=== PATIENT | female | born 1980 | race American Indian/Alaskan Native ===

== ENCOUNTER 2017-06-11 20:40 | Observation (INO) | payer BC, OTHER ==
[2017-06-11] MEDS ORDERED: methylPREDNISolone Sodium Succinate 125 MG/2 ML SDV IM ONE (20:44)
[2017-06-11] MEDS ORDERED: Albuterol/Ipratropium 3.0-0.5 MG/3 ML Neb Soln NEB ONE ×2 (20:44→21:35)
--- NOTE | 2017-06-11 20:45 | EDM.PDOC ---
ED HPI GENERAL MEDICAL PROBLEM - General Chief Complaint: Respiratory Problem Stated Complaint: SHORTNESS OF BREATH Time Seen by Provider: 06/11/17 20:41 Source of Information: Reports: Patient History Limitations: Reports: No Limitations - History of Present Illness INITIAL COMMENTS - FREE TEXT/NARRATIVE: HISTORY AND PHYSICAL: History of present illness: Patient is a 36-year-old female who presents to the emergency room with complaints of chest pain and shortness of breath. She states she started having the symptoms earlier this morning and have progressively gotten worse since about 3 PM this afternoon. Patient has a reported history of allergies and has duo nebs available to her at home. Did two treatments [employer] without relief of her SOB. She describes her chest pain as a tightness, generalized across her chest. Worse with deep breathes and coughing. She denies any fever, chills, abdominal pain, nausea, vomiting or diarrhea/ constipation. Denies any diaphoresis or radiating pain (no neck, jaw or back pain). Denies any history of lung disease such as asthma or COPD. No history of heart disease. No smoking history. Review of systems: As per history of present illness and below otherwise all systems reviewed and negative. Past medical history: As per history of present illness and as reviewed below otherwise noncontributory. Surgical history: As per history of present illness and as reviewed below otherwise noncontributory. Social history: No reported history of drug or alcohol abuse. Family history: As per history of present illness and as reviewed below otherwise noncontributory. Physical exam: General: Well-developed and well-nourished 36-year-old female. Alert and oriented. Nontoxic appearing and in no acute distress. HEENT: Atraumatic, normocephalic, pupils equal and reactive bilaterally, negative for conjunctival pallor or scleral icterus, mucous membranes moist, throat clear, neck supple, nontender, trachea midline. No drooling or trismus noted. No meningeal signs Lungs: Inspiratory and expiratory wheezing bilaterally, chest nontender. Heart: S1S2, regular rate and rhythm without overt murmur. Tachycardia with HR 120-110's Abdomen: Soft, nondistended, nontender. Negative for masses or hepatosplenomegaly. Negative for costovertebral tenderness. Pelvis: Stable nontender. Genitourinary: Deferred. Rectal: Deferred. Skin: Intact, warm, dry. No lesions or rashes noted. Extremities: Atraumatic, negative for cords or calf pain. Neurovascular unremarkable. Neuro: Awake, alert, oriented. Cranial nerves II through XII unremarkable. Cerebellum unremarkable. Motor and sensory unremarkable throughout. Exam nonfocal. Notes: Patient had to do an nebs prior to arrival. She did have inspiratory and expiratory wheezing with poor air exchange. After the first DuoNeb she did have better air exchange but still had the inspiratory and expiratory wheezing. EKG shows sinus Tachycardia, HR 117. WBC is 21.8. Chest x-ray shows a bilateral lower lobe pneumonia. Blood cultures obtained; second duo neb ordered. Dr. Mcelroy was consulted on this case. He would like IV Levaquin started. Patient will be admitted to Med/Surg observation per [facility]. Diagnostics: CBC, CMP, troponin, EKG, chest x-ray Therapeutics: Solu-Medrol, DuoNeb, IV fluids, Levaquin Impression: CAP Pneumonia Plan: Observation admission to Med/Surg Definitive disposition and diagnosis as appropriate pending reevaluation and review of above. Onset: Today Duration: Hour(s): chest Pain Score (Numeric/FACES): 8 - Related Data Allergies Allergy/AdvReac Type Severity Reaction Status Date / Time No Known Allergies Allergy Verified 06/11/17 20:44 Home Meds: Home Meds . [No Known Home Meds] 06/11/17 [History] ED ROS GENERAL - Review of Systems Review Of Systems: ROS reveals no pertinent complaints other than HPI. ED EXAM, GENERAL - Physical Exam Exam: See Below (See dictation) Course - Vital Signs Last Recorded V/S: Last Vital Signs Temp 97.7 F 06/11/17 20:46 Pulse 128 H 06/11/17 20:46 Resp 24 H 06/11/17 20:46 BP 146/89 H 06/11/17 20:46 Pulse Ox 93 L 06/11/17 20:46 - Orders/Labs/Meds Orders: Active Orders 24 hr Category Date Time Status Admission Status [Patient Status] [ADT] Stat ADT 06/11/17 21:34 Ordered EKG Documentation Completion [RC] STAT Care 06/11/17 20:45 Active RT Aerosol Therapy [RC] ASDIRECTED Care 06/11/17 20:45 Active RT Aerosol Therapy [RC] ASDIRECTED Care 06/11/17 21:35 Ordered Chest 1V Frontal [CR] Stat Exams 06/11/17 21:06 Taken COMPREHENSIVE METABOLIC PN,CMP [CHEM] Stat Lab 06/11/17 20:59 Received CULTURE BLOOD [BC] Stat Lab 06/11/17 21:30 Ordered CULTURE BLOOD [BC] Stat Lab 06/11/17 21:30 Ordered TROPONIN I [CHEM] Stat Lab 06/11/17 20:59 Received Levofloxacin/Dextrose 5%-Water [Levaquin in D5W 750 MG/ Med 06/11/17 21:34 Ordered 150 ML] 750 mg Premix Bag 1 bag IV ONETIME Sodium Chloride 0.9% [Normal Saline] 1,000 ml Med 06/11/17 21:05 Active IV STAT Sodium Chloride 0.9% [Saline Flush] Med 06/11/17 21:05 Active 10 ml FLUSH ASDIRECTED PRN Sodium Chloride 0.9% [Saline Flush] Med 06/11/17 21:05 Active 2.5 ml FLUSH ASDIRECTED PRN Blood Culture x2 Reflex Set [OM.PC] Stat Oth 06/11/17 21:30 Ordered Saline Lock Insert [OM.PC] Stat Oth 06/11/17 21:05 Ordered Medication Orders Sodium Chloride (Normal Saline) 1,000 mls @ 999 mls/hr IV STAT ONE Stop: 06/11/17 22:05 Levofloxacin/Dextrose 750 mg/ (Premix) 150 mls @ 100 mls/hr IV ONETIME ONE Stop: 06/11/17 23:03 Sodium Chloride (Saline Flush) 10 ml FLUSH ASDIRECTED PRN PRN Reason: Keep Vein Open Sodium Chloride (Saline Flush) 2.5 ml FLUSH ASDIRECTED PRN PRN Reason: Keep Vein Open Labs: Laboratory Tests 06/11/17 Range/Units 20:59 WBC 21.88 H (4.0-11.0) K/uL RBC 4.48 (4.30-5.90) M/uL Hgb 13.8 (12.0-16.0) g/dL Hct 41.4 (36.0-46.0) % MCV 92.4 (80.0-98.0) fL MCH 30.8 (27.0-32.0) pg MCHC 33.3 (31.0-37.0) g/dL RDW Std Deviation 49.8 (28.0-62.0) fl RDW Coeff of Sheldon 15 (11.0-15.0) % Plt Count 327 (150-400) K/uL MPV 9.40 (7.40-12.00) fL Neut % (Auto) 86.0 H (48.0-80.0) % Lymph % (Auto) 6.9 L (16.0-40.0) % [place] % (Auto) 4.2 (0.0-15.0) % Eos % (Auto) 2.7 (0.0-7.0) % Baso % (Auto) 0.2 (0.0-1.5) % Neut # (Auto) 18.8 H (1.4-5.7) K/uL Lymph # (Auto) 1.5 (0.6-2.4) K/uL [place] # (Auto) 0.9 H (0.0-0.8) K/uL Eos # (Auto) 0.6 (0.0-0.7) K/uL Baso # (Auto) 0.1 (0.0-0.1) K/uL Nucleated RBC % 0.0 /100WBC Nucleated RBCs # 0 K/uL Meds: Medications Generic Name Dose Route Start Last Admin Trade Name Freq PRN Reason Stop Dose Admin Sodium Chloride 1,000 mls @ 999 mls/hr 06/11/17 21:05 Normal Saline IV 06/11/17 22:05 STAT ONE Levofloxacin/Dextrose 750 mg/ 150 mls @ 100 mls/hr 06/11/17 21:34 Premix IV 06/11/17 23:03 ONETIME ONE Sodium Chloride 10 ml 06/11/17 21:05 Saline Flush FLUSH ASDIRECTED PRN Keep Vein Open Sodium Chloride 2.5 ml 06/11/17 21:05 Saline Flush FLUSH ASDIRECTED PRN Keep Vein Open Discontinued Medications Generic Name Dose Route Start Last Admin Trade Name Freq PRN Reason Stop Dose Admin Albuterol/Ipratropium 3 ml 06/11/17 20:44 06/11/17 20:55 Duoneb 3.0-0.5 Mg/3 Ml NEB 06/11/17 20:45 3 ml ONETIME ONE Administration Albuterol/Ipratropium 3 ml 06/11/17 21:35 Duoneb 3.0-0.5 Mg/3 Ml NEB 06/11/17 21:36 ONETIME ONE Methylprednisolone Sodium Succinate 125 mg 06/11/17 20:44 06/11/17 20:52 Solu-Medrol IM 06/11/17 20:45 125 mg ONETIME ONE Administration Departure - Departure Time of Disposition: 21:48 Disposition: Refer to Observation Condition: Fair Clinical Impression: Pneumonia Qualifiers: Pneumonia type: due to unspecified organism Laterality: bilateral Lung location : lower lobe of lung Qualified Code(s): J18.1 - Lobar pneumonia, unspecified organism - Discharge Information Referrals: PCP,None [Primary Care Provider] - Forms: ED Department Discharge - My Orders Last 24 Hours: My Active Orders 06/11/17 20:45 EKG Documentation Completion [RC] STAT RT Aerosol Therapy [RC] ASDIRECTED 06/11/17 20:59 COMPREHENSIVE METABOLIC PN,CMP [CHEM] Stat TROPONIN I [CHEM] Stat 06/11/17 21:05 Sodium Chloride 0.9% [Normal Saline] 1,000 ml IV STAT Sodium Chloride 0.9% [Saline Flush] 10 ml FLUSH ASDIRECTED PRN Sodium Chloride 0.9% [Saline Flush] 2.5 ml FLUSH ASDIRECTED PRN Saline Lock Insert [OM.PC] Stat 06/11/17 21:06 Chest 1V Frontal [CR] Stat 06/11/17 21:30 CULTURE BLOOD [BC] Stat CULTURE BLOOD [BC] Stat Blood Culture x2 Reflex Set [OM.PC] Stat 06/11/17 21:34 Admission Status [Patient Status] [ADT] Stat Levofloxacin/Dextrose 5%-Water [Levaquin in D5W 750 MG/150 ML] 750 mg Premix Bag 1 bag IV ONETIME 06/11/17 21:35 RT Aerosol Therapy [RC] ASDIRECTED - Assessment/Plan Last 24 Hours: My Active Orders 06/11/17 20:45 EKG Documentation Completion [RC] STAT RT Aerosol Therapy [RC] ASDIRECTED 06/11/17 20:59 COMPREHENSIVE METABOLIC PN,CMP [CHEM] Stat TROPONIN I [CHEM] Stat 06/11/17 21:05 Sodium Chloride 0.9% [Normal Saline] 1,000 ml IV STAT Sodium Chloride 0.9% [Saline Flush] 10 ml FLUSH ASDIRECTED PRN Sodium Chloride 0.9% [Saline Flush] 2.5 ml FLUSH ASDIRECTED PRN Saline Lock Insert [OM.PC] Stat 06/11/17 21:06 Chest 1V Frontal [CR] Stat 06/11/17 21:30 CULTURE BLOOD [BC] Stat CULTURE BLOOD [BC] Stat Blood Culture x2 Reflex Set [OM.PC] Stat 06/11/17 21:34 Admission Status [Patient Status] [ADT] Stat Levofloxacin/Dextrose 5%-Water [Levaquin in D5W 750 MG/150 ML] 750 mg Premix Bag 1 bag IV ONETIME 06/11/17 21:35 RT Aerosol Therapy [RC] ASDIRECTED
[2017-06-11] MEDS ORDERED: Sodium Chloride 0.9% 1,000 ML IV ONE (21:05)
[2017-06-11] MEDS ORDERED: Sodium Chloride 0.9% 10 ML Syringe FLUSH PRN (21:05)
[2017-06-11] MEDS ORDERED: Sodium Chloride 0.9% 2.5 ML Syringe FLUSH PRN (21:05)
[2017-06-11] MEDS ORDERED: Levofloxacin/Dextrose 5%-Water 750 MG in Premix Bag 1 BAG IV ONE (21:34)
[2017-06-11 21:37] LABS: CHLORIDE,CL 106 mmol/L (98-107); SODIUM,NA 138 mmol/L (136-145)
[2017-06-11] MEDS ORDERED: Albuterol/Ipratropium 3.0-0.5 MG/3 ML Neb Soln ONE (21:37)
[2017-06-11] MEDS: Morphine 4 MG/ML Syringe IVPUSH PRN (23:08)
[2017-06-11] MEDS: Benzonatate 100 MG Cap PO PRN (23:08)
[2017-06-12] MEDS: Acetaminophen 325 MG Tab PO PRN ×3 (02:30→20:48)
[2017-06-12] MEDS: Albuterol/Ipratropium 3.0-0.5 MG/3 ML Neb Soln NEB SCH ×6 (02:31→21:49)
[2017-06-12] MEDS: Morphine 4 MG/ML Syringe IVPUSH PRN (05:23)
[2017-06-12] MEDS ORDERED: Albuterol/Ipratropium 3.0-0.5 MG/3 ML Neb Soln NEB SCH (06:00)
[2017-06-12] MEDS ORDERED: Ondansetron 4 MG/2 ML SDV IVPUSH PRN (08:05)
--- NOTE | 2017-06-12 08:10 | PCM.HP ---
H&P History of Present Illness - General Date of Service: 06/12/17 Admit Problem/Dx: Admission Diagnosis/Problem Admission Diagnosis/Problem Pneumonia Source of Information: Patient History Limitations: Reports: No Limitations - History of Present Illness Initial Comments - Free Text/Narative: This 36 year old otherwise healthy female presented to the ED with complaints of chest pain and shortness of breath. She reports this started yesterday morning suddenly and by 3 pm she felt it was nearly intolerable. She denies fevers at home. Productive cough. She reports wheezing, which she took some nebulizer treatments at home for that didn't seem to help too much. 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 She recently slipped on the ice and injured her back. She has been taking Motrin 800 mg alternating with Tylenol 1000 mg throughout the day, she is scheduled for an MRI today. Her back pain is located in her tailbone and lower back no numbness of tingling. She recently stopped taking her muscle relaxer and has just been using the Tylenol and Motrin. Coughing worsens the pain. She using tobacco only when drinking occasionally, social alcohol use and no recreational drug use. In the ED, leukocytosis of 21,000 was noted, bicarb 20. CXR revealed patchy opacity in lingula. EKG ST. She was given 125 mg Solumderol, NS bolus, Levaquin and multiple duonebs. She will be admitted observation for CAP. PCP, in [place]. Back Pain Score (Numeric/FACES): 6 chest Pain Score (Numeric/FACES): 4 - Related Data Allergies/Adverse Reactions: Allergies Allergy/AdvReac Type Severity Reaction Status Date / Time No Known Allergies Allergy Verified 06/11/17 20:44 Home Medications: Home Meds . [No Known Home Meds] 06/11/17 [History] Past Medical History HEENT History: Reports: Impaired Vision Cardiovascular History: Reports: None. Denies: Afib, Blood Clots/VTE/DVT, CAD, High Cholesterol, Hypertension, [place] Respiratory History: Reports: Asthma (with seasonal allergies only.). Denies: COPD, PE Gastrointestinal History: Reports: None. Denies: GERD, GI Bleed Genitourinary History: Reports: None Musculoskeletal History: Reports: None Neurological History: Reports: None Psychiatric History: Reports: None Endocrine/Metabolic History: Reports: Obesity/BMI 30+. 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 Denies: Fever , Chills HEENT: Reports: Headaches (after getting Morphine this morning.), Sinus Congestion. Denies: Sore Throat, Visual Changes Pulmonary: Reports: Shortness of Breath, Wheezing, Pleuritic Chest Pain, Cough, Sputum. Denies: Hemoptysis Cardiovascular: Reports: No Symptoms. Denies: Chest Pain, Palpitations, Lightheadedness Gastrointestinal: Reports: No Symptoms. Denies: Abdominal Pain, Black Stool, Bloody Stool, Vomiting Genitourinary: Reports: No Symptoms. Denies: Dysuria, Frequency, Burning, Pain Musculoskeletal: Reports: Back Pain (low back/tailbone pain, slipped on ice a week or so ago.) Psychiatric: Reports: No Symptoms Neurological: Reports: No Symptoms Hematologic/Lymphatic: Reports: No Symptoms Immunologic: Reports: No Symptoms Exam - Exam Exam: See Below - Vital Signs Vital Signs: Last Vital Signs Temp 98.4 F 06/12/17 04:00 Pulse 112 H 06/12/17 04:00 Resp 18 06/12/17 04:00 BP 118/66 06/12/17 04:00 Pulse Ox 92 L 06/12/17 04:00 Weight: 77 kg - Exam General: Alert, Oriented, Cooperative HEENT: Conjunctiva Clear, Posterior Pharynx Clear Neck: Supple, Trachea Midline Lungs: Crackles (bilateral bases). No: Normal Respiratory Effort (dyspnea noted with movement), Wheezing Cardiovascular: Regular Rhythm, Tachycardia (120-130s) GI/Abdominal Exam: Normal Bowel Sounds, Soft, Non-Tender, No Organomegaly, No Distention, No Abnormal Bruit, No Mass, Pelvis Stable Extremities: Normal Inspection, Normal Range of Motion, Non-Tender, No Pedal Edema, Normal Capillary Refill Neuro Extensive - Mental Status: Alert, Oriented x3, Normal Mood/Affect, Normal Cognition Neuro Extensive - Motor, Sensory, Reflexes: CN II-XII Intact Psychiatric: Alert, Normal Affect, Normal Mood - Patient Data Lab Results Last 24 hrs: Laboratory Results - last 24 hr 06/11/17 06/11/17 Range/Units 20:59 20:59 WBC 21.88 H (4.0-11.0) K/uL RBC 4.48 (4.30-5.90) M/uL Hgb 13.8 (12.0-16.0) g/dL Hct 41.4 (36.0-46.0) % MCV 92.4 (80.0-98.0) fL MCH 30.8 (27.0-32.0) pg MCHC 33.3 (31.0-37.0) g/dL RDW Std Deviation 49.8 (28.0-62.0) fl RDW Coeff of Sheldon 15 (11.0-15.0) % Plt Count 327 (150-400) K/uL MPV 9.40 (7.40-12.00) fL Neut % (Auto) 86.0 H (48.0-80.0) % Lymph % (Auto) 6.9 L (16.0-40.0) % [place] % (Auto) 4.2 (0.0-15.0) % Eos % (Auto) 2.7 (0.0-7.0) % Baso % (Auto) 0.2 (0.0-1.5) % Neut # (Auto) 18.8 H (1.4-5.7) K/uL Lymph # (Auto) 1.5 (0.6-2.4) K/uL [place] # (Auto) 0.9 H (0.0-0.8) K/uL Eos # (Auto) 0.6 (0.0-0.7) K/uL Baso # (Auto) 0.1 (0.0-0.1) K/uL Nucleated RBC % 0.0 /100WBC Nucleated RBCs # 0 K/uL Sodium 138 (136-145) mmol/L Potassium 3.8 (3.5-5.1) mmol/L Chloride 106 (98-107) mmol/L Carbon Dioxide 20.0 L (21.0-32.0) mmol/L BUN 7 (7.0-18.0) mg/dL Creatinine 0.6 (0.6-1.0) mg/dL Est Cr Clr Drug Dosing 95.93 mL/min Estimated GFR (MDRD) > 60.0 ml/min Glucose 145 H (74-106) mg/dL Calcium 8.4 L (8.5-10.1) mg/dL Total Bilirubin 0.3 (0.2-1.0) mg/dL AST 16 (15-37) IU/L ALT 26 (14-63) IU/L Alkaline Phosphatase 72 (46-116) U/L Troponin I < 0.050 (0.000-0.056) ng/mL Total Protein 7.3 (6.4-8.2) g/dL Albumin 3.6 (3.4-5.0) g/dL Globulin 3.7 H (2.0-3.5) g/dL Albumin/Globulin Ratio 1.0 L (1.3-2.8) Result Diagrams: 06/12/17 08:35 06/12/17 08:35 EKG INTERPRETATION EKG Date: 06/12/17 Rhythm: NSR (sinus tachycardia) QRS: Normal ST-T: Normal QT: Normal *Q Meaningful Use (ADM) - VTE Risk Assess *Q Each Risk Factor Represents 1 Point: None Total Score 1 Point Risk Factors: 0 Each Risk Factor Represents 2 Points: None Total Score 2 Point Risk Factors: 0 Each Risk Factor Represents 3 Points: None Total Score 3 Point Risk Factors: 0 Each Risk Factor Represents 5 Points: None Total Score 5 Point Risk Factors: 0 Venous Thromboembolism Risk Factor Score *Q: 0 - Problem List (1) Community acquired bacterial pneumonia SNOMED Code(s): 618626823, [id number] ICD Code: J15.9 - UNSPECIFIED BACTERIAL PNEUMONIA Status: Acute Current Visit: Yes (2) Back pain SNOMED Code(s): 563586044 ICD Code: M54.9 - DORSALGIA, UNSPECIFIED Status: Acute Current Visit: Yes Qualifiers: Back pain location: low back pain Chronicity: acute Back pain laterality : bilateral Sciatica presence: without sciatica Qualified Code(s): M54.5 - Low back pain Problem List Initiated/Reviewed/Updated: Yes Orders Last 24hrs: Active Orders 24 hr Category Date Time Status Admission Status [Patient Status] [ADT] Stat ADT 06/11/17 21:34 Active Intake and Output [RC] QSHIFT Care 06/12/17 08:06 Ordered Oxygen Therapy [RC] PRN Care 06/12/17 08:06 Ordered RT Aerosol Therapy [RC] ASDIRECTED Care 06/11/17 20:45 Active RT Aerosol Therapy [RC] ASDIRECTED Care 06/11/17 21:35 Active RT Aerosol Therapy [RC] ASDIRECTED Care 06/12/17 02:02 Active RT Aerosol Therapy [RC] ASDIRECTED Care 06/12/17 02:20 Active Up ad Mildred [RC] ASDIRECTED Care 06/12/17 08:05 Ordered VTE/DVT Education [RC] PER UNIT ROUTINE Care 06/12/17 08:06 Ordered Vital Signs [RC] Q4H Care 06/12/17 08:06 Ordered Regular Diet [DIET] Diet 06/12/17 Lunch Ordered Chest 1V Frontal [CR] Stat Exams 06/11/17 21:06 Taken BASIC METABOLIC PANEL,BMP [CHEM] AM Lab 06/13/17 05:11 Ordered BASIC METABOLIC PANEL,BMP [CHEM] AM Lab 06/14/17 05:11 Ordered BASIC METABOLIC PANEL,BMP [CHEM] AM Lab 06/15/17 05:11 Ordered BMP [BASIC METABOLIC PANEL,BMP] [CHEM] Routine Lab 06/12/17 08:00 Ordered CBC WITH AUTO DIFF [HEME] AM Lab 06/13/17 05:11 Ordered CBC WITH AUTO DIFF [HEME] AM Lab 06/14/17 05:11 Ordered CBC WITH AUTO DIFF [HEME] AM Lab 06/15/17 05:11 Ordered CBC WITH AUTO DIFF [HEME] Routine Lab 06/12/17 08:00 Ordered CULTURE BLOOD [BC] Stat Lab 06/11/17 21:42 Received CULTURE BLOOD [BC] Stat Lab 06/11/17 21:52 Received CULTURE SPUTUM + SMEAR [RM] Stat Lab 06/12/17 08:05 Ordered Acetaminophen [Tylenol] Med 06/11/17 22:56 Active 650 mg PO Q4H PRN Albuterol/Ipratropium [DuoNeb 3.0-0.5 MG/3 ML] Med 06/12/17 02:30 Active 3 ml NEB Q4HRRT Benzonatate [Tessalon Perles] Med 06/11/17 22:56 Active 100 mg PO QID PRN Lactated Ringers @ 125 MLS/HR(1000ml) Med 06/12/17 08:15 Ordered Lactated Ringers [Ringers, Lactated] 1,000 ml IV ASDIRECTED Levofloxacin/Dextrose 5%-Water [Levaquin in D5W 750 MG/ Med 06/12/17 21:00 Active 150 ML] 750 mg Premix Bag 1 bag IV Q24H Morphine Med 06/11/17 22:55 Active 2 mg IVPUSH Q2H PRN Ondansetron [Zofran] Med 06/12/17 08:05 Ordered 4 mg IVPUSH Q4H PRN Sodium Chloride 0.9% [Saline Flush] Med 06/11/17 21:05 Active 10 ml FLUSH ASDIRECTED PRN Sodium Chloride 0.9% [Saline Flush] Med 06/11/17 21:05 Active 2.5 ml FLUSH ASDIRECTED PRN Blood Culture x2 Reflex Set [OM.PC] Stat Oth 06/11/17 21:30 Ordered Saline Lock Insert [OM.PC] Stat Oth 06/11/17 21:05 Ordered Sequential Compression Device [OM.PC] Per Unit Routine Oth 06/12/17 08:06 Ordered Resuscitation Status Routine Resus Stat 06/12/17 08:05 Ordered Medication Orders Acetaminophen (Tylenol) 650 mg PO Q4H PRN PRN Reason: Pain Last Admin: 06/12/17 02:30 Dose: 650 mg Albuterol/Ipratropium (Duoneb 3.0-0.5 Mg/3 Ml) 3 ml NEB Q4HRRT HIMA Last Admin: 06/12/17 07:51 Dose: 3 ml Admin: 06/12/17 02:31 Dose: 3 ml Benzonatate (Tessalon Perles) 100 mg PO QID PRN PRN Reason: Cough Last Admin: 06/11/17 23:08 Dose: 100 mg Levofloxacin/Dextrose 750 mg/ (Premix) 150 mls @ 100 mls/hr IV Q24H HIMA Lactated Ringer's (Ringers, Lactated) 1,000 mls @ 125 mls/hr IV ASDIRECTED [facility] Morphine Sulfate (Morphine) 2 mg IVPUSH Q2H PRN PRN Reason: Pain Last Admin: 06/12/17 05:23 Dose: 2 mg Admin: 06/11/17 23:08 Dose: 2 mg Ondansetron HCl (Zofran) 4 mg IVPUSH Q4H PRN PRN Reason: Nausea Sodium Chloride (Saline Flush) 10 ml FLUSH ASDIRECTED PRN PRN Reason: Keep Vein Open Sodium Chloride (Saline Flush) 2.5 ml FLUSH ASDIRECTED PRN PRN Reason: Keep Vein Open Assessment/Plan Comment:: This 36 year old female admitted for CAP 1. CAP: Feels a little improved this morning, still SOB and tachycardia noted. Off oxygen. Productive cough. Will order influenza swab and sputum culture. Give 1 L LR today and monitor HR. Continue Levaquin 750 mg IV daily. BC pending. Encourage IS and ambulation as tolerated. Leukocytosis up slightly to 23,000, was given dose of Solumedrol in ED. Will monitor in am. 2. Back pain: Acute, feel a week ago. Tylenol and Motrin ordered PRN for pain, will add Tramadol. Coughing worsens back pain. Heat and Ice alternating for pain relief. Had MRI scheduled as outpatient today, will reschedule this for her. VTE prophylaxis: SCDs and ambulation Dispo: 1-2 days.
[2017-06-12] MEDS ORDERED: traMADol 50 MG Tab PO PRN (08:23)
[2017-06-12] MEDS: Benzonatate 100 MG Cap PO PRN ×2 (08:54→16:02)
[2017-06-12] MEDS: Lactated Ringers 1,000 ML IV SCH ×2 (09:07→16:51)
[2017-06-12 09:12] LABS: CHLORIDE,CL 105 mmol/L (98-107); SODIUM,NA 137 mmol/L (136-145)
[2017-06-12] MEDS ORDERED: ClonazePAM 0.5 MG Tab PO PRN (09:36)
[2017-06-12] MEDS: Ibuprofen 800 MG Tab PO PRN ×2 (11:51→21:57)
--- NOTE | 2017-06-12 18:26 | CR ---
EXAM DATE: 06/11/17 PATIENT'S AGE: 36 Patient: FELIPE LOCKWOOD Facility: [place], [place] Site . Site : 1980 Study: XRay Chest [id number] 9:20:48 PM Ordering Physician: Doctor Steinberg Final Report: Indication: Shortness of breath Technique: Chest 1 view Comparison: None Findings/Impression: There is patchy opacity in the lingula, concerning for atelectasis or infection. The remainder of the lungs are clear. No pneumothorax or effusion. Normal cardiomediastinal silhouette. Osseous structures appear intact. Dictated by Farrah Iglesias MD @ Jun 11 2017 9:34PM (Electronic Signature) Report Signed by Proxy. CANDICE
[2017-06-12] MEDS ORDERED: Levofloxacin/Dextrose 5%-Water 750 MG in Premix Bag 1 BAG IV SCH (21:00)
[2017-06-13] MEDS: Lactated Ringers 1,000 ML IV SCH (02:05)
[2017-06-13] MEDS: Acetaminophen 325 MG Tab PO PRN (02:49)
[2017-06-13] MEDS: Albuterol/Ipratropium 3.0-0.5 MG/3 ML Neb Soln NEB SCH ×3 (02:49→10:06)
[2017-06-13 07:11] LABS: CHLORIDE,CL 106 mmol/L (98-107); SODIUM,NA 140 mmol/L (136-145)
[2017-06-13] MEDS: Ibuprofen 800 MG Tab PO PRN (07:17)
--- NOTE | 2017-06-13 09:17 | PCM.PN ---
- Patient Data Vitals - Most Recent: Last Vital Signs Temp 36.2 C 06/13/17 08:00 Pulse 84 06/13/17 08:00 Resp 19 06/13/17 08:00 BP 92/51 L 06/13/17 08:00 Pulse Ox 96 06/13/17 08:06 Weight - Most Recent: 77 kg I&O - Last 24 Hours: Intake & Output 06/12/17 06/13/17 06/13/17 22:59 06:59 14:59 Intake Total 2164 730 Output Total 3000 1500 Balance -836 -770 Lab Results Last 24 Hours: Laboratory Results - last 24 hr 06/13/17 06/13/17 Range/Units 06:15 06:15 WBC 14.69 H (4.0-11.0) K/uL RBC 4.01 L (4.30-5.90) M/uL Hgb 12.3 (12.0-16.0) g/dL Hct 37.5 (36.0-46.0) % MCV 93.5 (80.0-98.0) fL MCH 30.7 (27.0-32.0) pg MCHC 32.8 (31.0-37.0) g/dL RDW Std Deviation 51.5 (28.0-62.0) fl RDW Coeff of Sheldon 15 (11.0-15.0) % Plt Count 318 (150-400) K/uL MPV 9.60 (7.40-12.00) fL Neut % (Auto) 78.3 (48.0-80.0) % Lymph % (Auto) 15.0 L (16.0-40.0) % [place] % (Auto) 5.3 (0.0-15.0) % Eos % (Auto) 1.3 (0.0-7.0) % Baso % (Auto) 0.1 (0.0-1.5) % Neut # (Auto) 11.5 H (1.4-5.7) K/uL Lymph # (Auto) 2.2 (0.6-2.4) K/uL [place] # (Auto) 0.8 (0.0-0.8) K/uL Eos # (Auto) 0.2 (0.0-0.7) K/uL Baso # (Auto) 0.0 (0.0-0.1) K/uL Nucleated RBC % 0.0 /100WBC Nucleated RBCs # 0 K/uL Sodium 140 (136-145) mmol/L Potassium 4.5 (3.5-5.1) mmol/L Chloride 106 (98-107) mmol/L Carbon Dioxide 24.7 (21.0-32.0) mmol/L BUN 10 (7.0-18.0) mg/dL Creatinine 0.8 (0.6-1.0) mg/dL Est Cr Clr Drug Dosing 71.95 mL/min Estimated GFR (MDRD) > 60.0 ml/min Glucose 107 H (74-106) mg/dL Calcium 8.7 (8.5-10.1) mg/dL Dmitriy Results Last 24 Hours: Microbiology 06/11/17 21:52 Aerobic Blood Culture - Preliminary Blood - Venous - Lab Draw NO GROWTH AFTER 1 DAY Anaerobic Blood Culture - Preliminary NO GROWTH AFTER 1 DAY 06/11/17 21:42 Aerobic Blood Culture - Preliminary Blood - Venous NO GROWTH AFTER 1 DAY Anaerobic Blood Culture - Preliminary NO GROWTH AFTER 1 DAY 06/12/17 15:24 Gram Stain - Preliminary Sputum - Expectorated 06/12/17 10:44 Influenza Type A Antigen Screen - Final Nasopharyngeal Swab NEGATIVE INFLUENZA A VIRUS AG Influenza Type B Antigen Screen - Final NEGATIVE INFLUENZA B VIRUS AG Med Orders - Current: Current Medications Acetaminophen (Tylenol) 650 mg PO Q4H PRN PRN Reason: Pain Last Admin: 06/13/17 02:49 Dose: 650 mg Albuterol/Ipratropium (Duoneb 3.0-0.5 Mg/3 Ml) 3 ml NEB Q4HRRT [facility] Last Admin: 06/13/17 05:58 Dose: 3 ml Benzonatate (Tessalon Perles) 100 mg PO QID PRN PRN Reason: Cough Last Admin: 06/12/17 16:02 Dose: 100 mg Clonazepam (Klonopin) 0.25 mg PO BID PRN PRN Reason: Anxiety Last Admin: 06/12/17 22:07 Dose: 0.25 mg Levofloxacin/Dextrose 750 mg/ (Premix) 150 mls @ 100 mls/hr IV Q24H [facility] Last Infusion: 06/12/17 22:25 Dose: Infused Lactated Ringer's (Ringers, Lactated) 1,000 mls @ 125 mls/hr IV ASDIRECTED [facility] Last Admin: 06/13/17 02:05 Dose: 125 mls/hr Ibuprofen (Motrin) 800 mg PO Q6H PRN PRN Reason: back pain Last Admin: 06/13/17 07:17 Dose: 800 mg Morphine Sulfate (Morphine) 2 mg IVPUSH Q2H PRN PRN Reason: Pain Last Admin: 06/12/17 05:23 Dose: 2 mg Ondansetron HCl (Zofran) 4 mg IVPUSH Q4H PRN PRN Reason: Nausea Sodium Chloride (Saline Flush) 10 ml FLUSH ASDIRECTED PRN PRN Reason: Keep Vein Open Sodium Chloride (Saline Flush) 2.5 ml FLUSH ASDIRECTED PRN PRN Reason: Keep Vein Open Tramadol HCl (Ultram) 50 mg PO Q6H PRN PRN Reason: back pain Last Admin: 06/12/17 16:02 Dose: 50 mg Discontinued Medications Albuterol/Ipratropium (Duoneb 3.0-0.5 Mg/3 Ml) 3 ml NEB ONETIME ONE Stop: 06/11/17 20:45 Last Admin: 06/11/17 20:55 Dose: 3 ml Albuterol/Ipratropium (Duoneb 3.0-0.5 Mg/3 Ml) 3 ml NEB ONETIME ONE Stop: 06/11/17 21:36 Last Admin: 06/11/17 21:39 Dose: 3 ml Albuterol/Ipratropium (Duoneb 3.0-0.5 Mg/3 Ml) Confirm Administered Dose 3 ml .ROUTE .STK-MED ONE Stop: 06/11/17 21:38 Last Admin: 06/11/17 21:57 Dose: Not Given Sodium Chloride (Normal Saline) 1,000 mls @ 999 mls/hr IV STAT ONE Stop: 06/11/17 22:05 Last Admin: 06/11/17 21:54 Dose: 999 mls/hr Levofloxacin/Dextrose 750 mg/ (Premix) 150 mls @ 100 mls/hr IV ONETIME ONE Stop: 06/11/17 23:03 Last Admin: 06/11/17 21:55 Dose: 100 mls/hr Methylprednisolone Sodium Succinate (Solu-Medrol) 125 mg IM ONETIME ONE Stop: 06/11/17 20:45 Last Admin: 06/11/17 20:52 Dose: 125 mg - Plan Plan:: This 36 year old female admitted for CAP 1. CAP: Feels a little improved this morning, still SOB and tachycardia noted. Off oxygen. Productive cough. Will order influenza swab and sputum culture. Give 1 L LR today and monitor HR. Continue Levaquin 750 mg IV daily. BC pending. Encourage IS and ambulation as tolerated. Leukocytosis up slightly to 23,000, was given dose of Solumedrol in ED. Will monitor in am. 2. Back pain: Acute, feel a week ago. Tylenol and Motrin ordered PRN for pain, will add Tramadol. Coughing worsens back pain. Heat and Ice alternating for pain relief. Had MRI scheduled as outpatient today, will reschedule this for her. VTE prophylaxis: SCDs and ambulation Dispo: 1-2 days.
--- NOTE | 2017-06-13 12:05 | PCM.DCSUM1 ---
Discharge Summary - Hospital Course HPI Initial Comments: Discharge Summary Date of admission: 06/11/2017 Date of discharge: 06/13/2017 Admitting diagnosis: #1. Leukocytosis, shortness of breath, tachycardia, chest tightness likely secondary to community-acquired pneumonia based on imaging #2. Rule out influenza #3. Back pain acute in nature #4. #5. Discharge diagnoses: #1. Leukocytosis, improving, shortness of breath resolved, tachycardia resolved , chest tightness resolved secondary to community-acquired pneumonia diagnosed via imaging and sputum culture #2. Influenza ruled out #3. Back pain stable #4. Respiratory status stable #5. Consultations: None Procedures: None Hospitalization course: Patient was admitted secondary to elevated white blood cell count shortness of breath tachycardia and chest tightness in the setting of imaging indicating possible community-acquired pneumonia. There was possible concern for influenza, a swab was negative. Patient was placed on dual nebs, Levaquin for the likely community-acquired pneumonia, and IV fluids, and pain medication. Patient did appear to be tight in terms of her respiratory status on day 2 of admission, her white count was trending downwards, her sputum culture did indicate infection with gram-positive cocci. Patient was kept overnight to be reevaluated in the a.m., in the a.m. patient stated that she was feeling better from a respiratory standpoint, she was feeling better from an infectious standpoint, her white blood cell count was continuing to trend downwards, she was able to take by mouth without any concerns, and stated that she would like to go home and continue antibiotic treatment via oral Levaquin. Disposition on discharge: Home Condition on discharge: Stable Discharge medications: Continuation of home medication, Levaquin 750 mg 8 more tabs for total of 10 days, albuterol inhaler prescribed when necessary for shortness of breath/wheezing Follow-up instructions: Follow-up with primary care physician. - Discharge Data Discharge Date: 06/13/17 Discharge Disposition: Home, Self-Care 01 Condition: Fair - Patient Instructions Diet: Usual Diet as Tolerated Activity: As Tolerated Driving: Do Not Drive Showering/Bathing: May Shower Notify Provider of: Fever, Increased Pain, Swelling and Redness, Drainage, Nausea and/or Vomiting - Discharge Plan Prescriptions/Med Rec: Albuterol Sulfate [Ventolin Hfa] 8 gm IH Q4H PRN 30 Days #1 hfa.aer.ad PRN Reason: Wheezing Levofloxacin [Levaquin] 750 mg PO DAILY 8 Days #8 tablet Home Medications: Home Meds ClonazePAM [KlonoPIN] 0.25 mg PO BID 06/12/17 [History] Albuterol Sulfate [Ventolin Hfa] 8 gm IH Q4H PRN 30 Days #1 hfa.aer.ad 06/13/17 [Rx] Levofloxacin [Levaquin] 750 mg PO DAILY 8 Days #8 tablet 06/13/17 [Rx] Patient Handouts: Albuterol inhalation aerosol, Levofloxacin tablets, Community -Acquired Pneumonia, Adult, [id number] Referrals: Yana Bucio PA-C [Ordering Only Provider] - (Please call your PCP in [place] on Thursday to schedule for follow-up appointment.) - Discharge Summary/Plan Comment DC Time >30 min.: No - Patient Data Vitals - Most Recent: Last Vital Signs Temp 36.6 C 06/13/17 11:59 Pulse 90 06/13/17 11:59 Resp 18 06/13/17 11:59 BP 103/55 L 06/13/17 11:59 Pulse Ox 95 06/13/17 11:59 Weight - Most Recent: 77 kg I&O - Last 24 hours: Intake & Output 06/12/17 06/13/17 06/13/17 22:59 06:59 14:59 Intake Total 2164 730 Output Total 3000 1500 Balance -836 -314 Lab Results - Last 24 hrs: Laboratory Results - last 24 hr 06/13/17 06/13/17 Range/Units 06:15 06:15 WBC 14.69 H (4.0-11.0) K/uL RBC 4.01 L (4.30-5.90) M/uL Hgb 12.3 (12.0-16.0) g/dL Hct 37.5 (36.0-46.0) % MCV 93.5 (80.0-98.0) fL MCH 30.7 (27.0-32.0) pg MCHC 32.8 (31.0-37.0) g/dL RDW Std Deviation 51.5 (28.0-62.0) fl RDW Coeff of Sheldon 15 (11.0-15.0) % Plt Count 318 (150-400) K/uL MPV 9.60 (7.40-12.00) fL Neut % (Auto) 78.3 (48.0-80.0) % Lymph % (Auto) 15.0 L (16.0-40.0) % [place] % (Auto) 5.3 (0.0-15.0) % Eos % (Auto) 1.3 (0.0-7.0) % Baso % (Auto) 0.1 (0.0-1.5) % Neut # (Auto) 11.5 H (1.4-5.7) K/uL Lymph # (Auto) 2.2 (0.6-2.4) K/uL [place] # (Auto) 0.8 (0.0-0.8) K/uL Eos # (Auto) 0.2 (0.0-0.7) K/uL Baso # (Auto) 0.0 (0.0-0.1) K/uL Nucleated RBC % 0.0 /100WBC Nucleated RBCs # 0 K/uL Sodium 140 (136-145) mmol/L Potassium 4.5 (3.5-5.1) mmol/L Chloride 106 (98-107) mmol/L Carbon Dioxide 24.7 (21.0-32.0) mmol/L BUN 10 (7.0-18.0) mg/dL Creatinine 0.8 (0.6-1.0) mg/dL Est Cr Clr Drug Dosing 71.95 mL/min Estimated GFR (MDRD) > 60.0 ml/min Glucose 107 H (74-106) mg/dL Calcium 8.7 (8.5-10.1) mg/dL MICHEL Results - Last 24 hrs: Microbiology 06/11/17 21:52 Aerobic Blood Culture - Preliminary Blood - Venous - Lab Draw NO GROWTH AFTER 1 DAY Anaerobic Blood Culture - Preliminary NO GROWTH AFTER 1 DAY 06/11/17 21:42 Aerobic Blood Culture - Preliminary Blood - Venous NO GROWTH AFTER 1 DAY Anaerobic Blood Culture - Preliminary NO GROWTH AFTER 1 DAY 06/12/17 15:24 Gram Stain - Preliminary Sputum - Expectorated 06/12/17 10:44 Influenza Type A Antigen Screen - Final Nasopharyngeal Swab NEGATIVE INFLUENZA A VIRUS AG Influenza Type B Antigen Screen - Final NEGATIVE INFLUENZA B VIRUS AG Med Orders - Current: Current Medications Acetaminophen (Tylenol) 650 mg PO Q4H PRN PRN Reason: Pain Last Admin: 06/13/17 02:49 Dose: 650 mg Albuterol/Ipratropium (Duoneb 3.0-0.5 Mg/3 Ml) 3 ml NEB Q4HRRT [facility] Last Admin: 06/13/17 10:06 Dose: 3 ml Benzonatate (Tessalon Perles) 100 mg PO QID PRN PRN Reason: Cough Last Admin: 06/12/17 16:02 Dose: 100 mg Clonazepam (Klonopin) 0.25 mg PO BID PRN PRN Reason: Anxiety Last Admin: 06/12/17 22:07 Dose: 0.25 mg Levofloxacin/Dextrose 750 mg/ (Premix) 150 mls @ 100 mls/hr IV Q24H [facility] Last Infusion: 06/12/17 22:25 Dose: Infused Lactated Ringer's (Ringers, Lactated) 1,000 mls @ 125 mls/hr IV ASDIRECTED [facility] Last Admin: 06/13/17 02:05 Dose: 125 mls/hr Ibuprofen (Motrin) 800 mg PO Q6H PRN PRN Reason: back pain Last Admin: 06/13/17 07:17 Dose: 800 mg Morphine Sulfate (Morphine) 2 mg IVPUSH Q2H PRN PRN Reason: Pain Last Admin: 06/12/17 05:23 Dose: 2 mg Ondansetron HCl (Zofran) 4 mg IVPUSH Q4H PRN PRN Reason: Nausea Sodium Chloride (Saline Flush) 10 ml FLUSH ASDIRECTED PRN PRN Reason: Keep Vein Open Sodium Chloride (Saline Flush) 2.5 ml FLUSH ASDIRECTED PRN PRN Reason: Keep Vein Open Tramadol HCl (Ultram) 50 mg PO Q6H PRN PRN Reason: back pain Last Admin: 06/12/17 16:02 Dose: 50 mg Discontinued Medications Albuterol/Ipratropium (Duoneb 3.0-0.5 Mg/3 Ml) 3 ml NEB ONETIME ONE Stop: 06/11/17 20:45 Last Admin: 06/11/17 20:55 Dose: 3 ml Albuterol/Ipratropium (Duoneb 3.0-0.5 Mg/3 Ml) 3 ml NEB ONETIME ONE Stop: 06/11/17 21:36 Last Admin: 06/11/17 21:39 Dose: 3 ml Albuterol/Ipratropium (Duoneb 3.0-0.5 Mg/3 Ml) Confirm Administered Dose 3 ml .ROUTE .STK-MED ONE Stop: 06/11/17 21:38 Last Admin: 06/11/17 21:57 Dose: Not Given Sodium Chloride (Normal Saline) 1,000 mls @ 999 mls/hr IV STAT ONE Stop: 06/11/17 22:05 Last Admin: 06/11/17 21:54 Dose: 999 mls/hr Levofloxacin/Dextrose 750 mg/ (Premix) 150 mls @ 100 mls/hr IV ONETIME ONE Stop: 06/11/17 23:03 Last Admin: 06/11/17 21:55 Dose: 100 mls/hr Methylprednisolone Sodium Succinate (Solu-Medrol) 125 mg IM ONETIME ONE Stop: 06/11/17 20:45 Last Admin: 06/11/17 20:52 Dose: 125 mg
== END 2017-06-13 13:20 | disposition home or self-care (01) ==
LOC: MW.ED 20:40 → MW.MS 21:34
PROVIDERS: ADMIT Family Medicine; ATTEND Family Medicine
DX: J18.9 Pneumonia, unspecified organism (principal); M54.5 Low back pain; J45.909 Unspecified asthma, uncomplicated; E66.9 Obesity, unspecified; F17.290 Nicotine dependence, other tobacco product, uncomplicated; Z79.899 Other long term (current) drug therapy; Z68.30 Body mass index [BMI] 30.0-30.9, adult
CPT/HCPCS: 36415; 71045; 80048; 80053; 84484; 85025; 87040; 87070; 87205; 87804; 93005; 94640; 96372; 99285; A9270; J1956; J2270; J2930; J7040; J7120

== ENCOUNTER 2018-10-24 11:53 | Emergency (ER) | payer OTHER ==
[2018-10-24] MEDS ORDERED: Ketorolac 60 MG/2 ML SDV IM ONE (12:12)
--- NOTE | 2018-10-24 12:12 | EDM.PDOC ---
ED HPI GENERAL MEDICAL PROBLEM - General Chief Complaint: Lower Extremity Injury/Pain Stated Complaint: RIGHT KNEE ISSUES Time Seen by Provider: 10/24/18 12:02 Source of Information: Reports: Patient History Limitations: Reports: No Limitations - History of Present Illness INITIAL COMMENTS - FREE TEXT/NARRATIVE: HISTORY AND PHYSICAL: History of present illness: Patient is a 38-year-old female presents to the ED today with concern of right knee pain and injury that occurred yesterday. Patient states she was jumping on a trampoline when she felt her knee give out and had landed on the trampoline pad which did not cause pain or injury. Patient states she did not have any direct trauma to the knee or any prior injury to the right knee. Patient states since then she's noticed some swelling and pain with movement of the knee. Patient states the pain is more on the outside of the knee. Patient denies any health history or any other symptoms or concerns at this time. Patient denies fever, chills, chest pain, shortness of breath, or cough. Denies headache, neck stiff ness, change in vision, syncope, or near syncope. Denies nausea, vomiting, abdominal pain, diarrhea, constipation, or dysuria. Has not noted any blood in urine or stool. Patient has been eating and drinking appropriately. Review of systems: As per history of present illness and below otherwise all systems reviewed and negative. Past medical history: As per history of present illness and as reviewed below otherwise noncontributory. Surgical history: As per history of present illness and as reviewed below otherwise noncontributory. Social history: See social history for further information Family history: As per history of present illness and as reviewed below otherwise noncontributory. Physical exam: General: Patient is alert, oriented, and in no acute distress. Patient sitting comfortably on exam table. HEENT: Atraumatic, normocephalic, pupils equal and reactive bilaterally, negative for conjunctival pallor or scleral icterus, mucous membranes moist, TMs normal bilaterally, throat clear, neck supple, nontender, trachea midline. No drooling or trismus noted. No meningeal signs. No hot potato voice noted. Lungs: Clear to auscultation, breath sounds equal bilaterally, chest nontender. Heart: S1S2, regular rate and rhythm without overt murmur Abdomen: Soft, nondistended, nontender. Negative for masses or hepatosplenomegaly. Negative for costovertebral tenderness. Pelvis: Stable nontender. Genitourinary: Deferred. Rectal: Deferred. Skin: Intact, warm, dry. No lesions or rashes noted. Extremities: Atraumatic, negative for cords or calf pain. Neurovascular unremarkable. Right knee is mildly edematous without erythema or warmth. Patient does have full range of motion of the knee but does have pain with range of motion. Patient does have moderate pain with both valgus and varus stress of the right knee. Patient also has full range of motion of the right hip and goes and digits. Dorsalis pedis and posterior tibial pulses are grossly intact with capillary refill less than 2 seconds. Neuro: Awake, alert, oriented. Cranial nerves II through XII unremarkable. Cerebellum unremarkable. Motor and sensory unremarkable throughout. Exam nonfocal. Notes: Discussed the importance for follow-up with an orthopedic provider. Voices understanding and is agreeable to plan of care. Denies any further questions or concerns at this time. Diagnostics: Knee XR Therapeutics: Knee immobilizer, crutches, Toradol Prescription: Diclofenac Impression: Right knee injury Plan: 1. Rest, ice, elevate the affected extremity. You can apply ice 15 minutes on, 15 minutes off. 2. Tylenol as directed for pain management or discomfort. Take medication as prescribed. 3. Follow up with the Orthopedic provider as discussed. You can choose any of the above orthopedic clinics that are convenient to you and call to make an appointment for follow-up. 4. Return to the ED as needed and as discussed. Definitive disposition and diagnosis as appropriate pending reevaluation and review of above. Right Knee Pain Score (Numeric/FACES): 10 - Related Data Allergies Allergy/AdvReac Type Severity Reaction Status Date / Time No Known Allergies Allergy Verified 10/24/18 12:00 Home Meds: Home Meds Diclofenac Sodium [Voltaren] 75 mg PO BIDMEALS PRN #15 tab.cr 10/24/18 [Rx] Past Medical History HEENT History: Reports: Impaired Vision Cardiovascular History: Reports: None Respiratory History: Reports: Asthma Gastrointestinal History: Reports: None Genitourinary History: Reports: None [employer] GENERATING History: Reports: Musculoskeletal History: Reports: Other (See Below) Other Musculoskeletal History: Coccyx injuries x4, last one with bowel urgency changes. Neurological History: Reports: None Psychiatric History: Reports: None Endocrine/Metabolic History: Reports: Obesity/BMI 30+ Dermatologic History: Reports: None - Infectious Disease History Infectious Disease History: Reports: None - Past Surgical History HEENT Surgical History: Reports: Tonsillectomy Social & Family History - Family History Family Medical History: Noncontributory - Tobacco Use Smoking Status *Q: Current Every Day Smoker Years of Tobacco use: 20 Packs/Tins Daily: 1 - Caffeine Use Caffeine Use: Reports: Coffee - Recreational Drug Use Recreational Drug Use: No - Living Situation & Occupation Living situation: Reports: 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 ED EXAM, GENERAL - Physical Exam Exam: See Below (See dictation) Course - Vital Signs Last Recorded V/S: Last Vital Signs Temp 36.3 C 10/24/18 12:01 Pulse 113 H 10/24/18 12:01 Resp 18 10/24/18 12:01 BP 134/82 10/24/18 12:01 Pulse Ox 96 10/24/18 12:01 - Orders/Labs/Meds Orders: Active Orders 24 hr Category Date Time Status DME for Discharge [COMM] Stat Oth 10/24/18 13:01 Ordered Meds: Medications Discontinued Medications Generic Name Dose Route Start Last Admin Trade Name Heather PRN Reason Stop Dose Admin Ketorolac Tromethamine 60 mg 10/24/18 12:12 10/24/18 12:33 Toradol IM 10/24/18 12:13 60 mg ONETIME ONE Administration Departure - Departure Time of Disposition: 13:02 Disposition: Home, Self-Care 01 Clinical Impression: Right knee injury Qualifiers: Encounter type: initial encounter Qualified Code(s): S89.91XA - Unspecified injury of right lower leg, initial encounter - Discharge Information Prescriptions: Diclofenac Sodium [Voltaren] 75 mg PO BIDMEALS PRN #15 tab.cr PRN Reason: Pain Referrals: PCP,None [Primary Care Provider] - Forms: ED Department Discharge Additional Instructions: The following information is given to patients seen in the emergency department who are being discharged to home. This information is to outline your options for follow-up care. We provide all patients seen in our emergency department with a follow-up referral. The need for follow-up, as well as the timing and circumstances, are variable depending upon the specifics of your emergency department visit. If you don't have a primary care physician on staff, we will provide you with a referral. We always advise you to contact your personal physician following an emergency department visit to inform them of the circumstance of the visit and for follow-up with them and/or the need for any referrals to a consulting specialist. The emergency department will also refer you to a specialist when appropriate. This referral assures that you have the opportunity for follow-up care with a specialist. All of these measure are taken in an effort to provide you with optimal care, which includes your follow-up. Under all circumstances we always encourage you to contact your private physician who remains a resource for coordinating your care. When calling for follow-up care, please make the office aware that this follow-up is from your recent emergency room visit. If for any reason you are refused follow-up, please contact the [facility] Emergency Department at and asked to speak to the emergency department charge nurse. [facility] [address] [place] [id number] [address] [facility] Special[facility] - Orthopedic Clinic Professional Building [address] [place] [address], [address] [place] [address] Dr Stinson, Orthopedist [facility] [address] [place] [address] Dr Lauren - Dr Martin - Dr Farmer [facility] at [facility] [address] [place] [address] [facility] [address] [place] [address] 1. Rest, ice, elevate the affected extremity. You can apply ice 15 minutes on, 15 minutes off. 2. Tylenol as directed for pain management or discomfort. Take medication as prescribed. 3. Follow up with the Orthopedic provider as discussed. You can choose any of the above orthopedic clinics that are convenient to you and call to make an appointment for follow-up. 4. Return to the ED as needed and as discussed. - My Orders Last 24 Hours: My Active Orders 10/24/18 13:01 DME for Discharge [COMM] Stat - Assessment/Plan Last 24 Hours: My Active Orders 10/24/18 13:01 DME for Discharge [COMM] Stat
--- NOTE | 2018-10-24 12:54 | CR ---
Indication: Knee pain Technique: Right knee 3 views Comparison: None Findings: No fracture or malalignment. Moderate joint effusion. Mild patellofemoral narrowing. Impression: No fracture or dislocation. Patellofemoral degenerative joint disease. Moderate joint effusion. Dictated by Cristobal Syed MD @ Oct 24 2018 12:52PM Signed by Dr. Cristobal Syed @ Oct 24 2018 12:53PM
== END 2018-10-24 13:29 | disposition home or self-care (01) ==
LOC: MW.ED 11:53
DX: S89.91XA Unspecified injury of right lower leg, initial encounter (principal); E66.9 Obesity, unspecified; Z98.890 Other specified postprocedural states; F17.210 Nicotine dependence, cigarettes, uncomplicated; W09.8XXA Fall on or from other playground equipment, initial encounter; Y93.39 Activity, other involving climbing, rappelling and jumping off
CPT/HCPCS: 73562; 96372; 99283; J1885

== ENCOUNTER 2022-01-30 06:39 | Day surgery (SDC) | payer OTHER ==
[2022-01-28 10:56] LABS: CARBON DIOXIDE,CO2 24.5 mmol/L (21.0-32.0); POTASSIUM,K 3.5 mmol/L (3.5-5.1)
[~2022-01-30 06:39] MED LIST: Sodium Chloride 0.9% 10 ML Syringe FLUSH PRN; Sodium Chloride 0.9% 2.5 ML Syringe FLUSH PRN; Sodium Chloride 0.9% 20 ML SDV IV PRN; cefOXitin 2 GM in Premix Bag 1 BAG IV ONE
[2022-01-30] MEDS ORDERED: Scopolamine 1.5 MG Transdermal Patch TOP ONE (07:00)
[2022-01-30] MEDS ORDERED: Lactated Ringers 1,000 ML IV SCH (07:30)
[2022-01-30] MEDS ORDERED: propofoL 100 ML ONE ×2 (07:37→08:51)
[2022-01-30] MEDS ORDERED: fentaNYL 100 MCG/2 ML SDV ONE (07:38)
[2022-01-30] MEDS ORDERED: Midazolam 1 MG/ML 2 ML SDV ONE (07:38)
[2022-01-30] MEDS ORDERED: Rocuronium Bromide 50 MG/5 ML Syringe ONE (07:46)
[2022-01-30] MEDS ORDERED: Ondansetron 4 MG/2 ML SDV ONE (07:46)
[2022-01-30] MEDS ORDERED: Dexamethasone 4 MG/ML 5 ML MDV ONE (07:46)
[2022-01-30] MEDS ORDERED: Lidocaine 2% 5 ML SDV ONE (07:46)
[2022-01-30] MEDS ORDERED: Sugammadex Sodium 200 MG/2 ML VIAL ONE (07:46)
[2022-01-30] MEDS ORDERED: Ketorolac 30 MG/ML SDV ONE (07:46)
[2022-01-30] MEDS ORDERED: Bupivacaine 0.25% 30 ML SDV ONE (07:51)
[2022-01-30] MEDS ORDERED: Fluorescein 5 ML Vial ONE (07:51)
[2022-01-30] MEDS ORDERED: Bupivacaine 0.5% 30 ML SDV ONE (07:51)
[2022-01-30] MEDS ORDERED: ceFAZolin 1 GM Vial ONE (08:17)
[2022-01-30] MEDS ORDERED: Metoclopramide 10 MG/2 ML SDV IVPUSH PRN (09:31)
[2022-01-30] MEDS ORDERED: Naloxone 0.4 MG/ML SDV IVPUSH PRN (09:31)
[2022-01-30] MEDS ORDERED: fentaNYL 50 MCG/ML SDV IVPUSH PRN (09:31)
[2022-01-30] MEDS ORDERED: Albuterol 0.083% 2.5 MG/3 ML Neb Soln NEB PRN (09:31)
[2022-01-30] MEDS ORDERED: Morphine 2 MG/ML SYRINGE IVPUSH PRN (09:31)
[2022-01-30] MEDS ORDERED: HYDROmorphone 1 MG/ML Syringe IVPUSH PRN (09:31)
[2022-01-30] MEDS ORDERED: Ondansetron 4 MG/2 ML SDV IVPUSH PRN ×2 (09:31→10:10)
[2022-01-30] MEDS ORDERED: HYDROmorphone 2 MG/ML Syringe ONE (09:41)
[2022-01-30] MEDS ORDERED: Morphine 4 MG/ML Syringe IVPUSH PRN (10:10)
[2022-01-30] MEDS ORDERED: Promethazine 25 MG/ML SDV IM PRN (10:10)
[2022-01-30] MEDS ORDERED: Ketorolac 30 MG/ML SDV IVPUSH ONE (10:10)
[2022-01-30] MEDS ORDERED: Acetaminophen/oxyCODONE 325-5 MG Tab PO PRN ×2 (10:10)
[2022-01-30] MEDS: Ketorolac 30 MG/ML SDV IVPUSH PRN (16:17)
[2022-01-31] MEDS: Ketorolac 30 MG/ML SDV IVPUSH PRN (00:48)
[2022-01-31] MEDS ORDERED: Acetaminophen 500 MG Tab PO ONE (02:56)
[2022-01-31 06:50] LABS: CARBON DIOXIDE,CO2 29.5 mmol/L (21.0-32.0); POTASSIUM,K 3.7 mmol/L (3.5-5.1)
== END 2022-01-31 10:17 | disposition home or self-care (01) ==
LOC: MW.SDS 06:39 → MW.MS 10:10 → MW.SDS 01-31 10:17
PROVIDERS: ATTEND Obstetrics & Gynecology
DX: D25.9 Leiomyoma of uterus, unspecified (principal); N92.1 Excessive and frequent menstruation with irregular cycle; F41.9 Anxiety disorder, unspecified; J45.909 Unspecified asthma, uncomplicated; F17.210 Nicotine dependence, cigarettes, uncomplicated; Z79.899 Other long term (current) drug therapy; Z91.048 Other nonmedicinal substance allergy status; Z98.890 Other specified postprocedural states
CPT/HCPCS: 36415; 58571; 80048; 84703; 85025; 85027; 86850; 86900; 86901; A9270; J0131; J0690; J1100; J1170; J1885; J2250; J2270; J2704; J3010; J3490; J7030; J7120; 00840; J2405